=== PATIENT | male | born 1985 | race Caucasian/White ===

== ENCOUNTER 2018-03-29 15:08 | Inpatient (IN) | payer BC ==
--- NOTE | 2018-03-29 16:58 | ER Document Report ---
ED Medical Screen (RME) - General Chief Complaint: Leg Swelling Stated Complaint: FOOT PAIN Time Seen by Provider: 03/29/18 16:56 Mode of Arrival: Ambulatory Information source: Patient Notes: Patient presents complaining of right lower extremity pain for the past several days. Patient states today he developed some shortness of breath. Patient denies any chest pain. Patient denies any history of DVT or PE. Patient denies any recent immobilization, bedrest or travel. I have greeted and performed a rapid initial assessment of this patient. A comprehensive ED assessment and evaluation of the patient, analysis of test results and completion of the medical decision making process will be conducted by additional ED providers. TRAVEL OUTSIDE OF THE [place] IN LAST 30 DAYS: No - Related Data Allergies/Adverse Reactions: No Known Allergies Allergy (Unverified 06/09/16 07:31) Past Medical History - Social History Chew tobacco use (# tins/day): No Frequency of alcohol use: Rare Drug Abuse: None Renal/ Medical History: Denies: Hx Peritoneal Dialysis - Immunizations Hx Diphtheria, Pertussis, Tetanus Vaccination: No Physical Exam - Vital signs Vitals: Temp Pulse Resp BP Pulse Ox 98.6 F 97 19 128/76 H 100 03/29/18 15:21 03/29/18 15:21 03/29/18 15:21 03/29/18 15:21 03/29/18 15:21 - Extremities General lower extremity: Tender, Edema Course - Vital Signs Vital signs: Temp Pulse Resp BP Pulse Ox 98.6 F 97 19 128/76 H 100 03/29/18 15:21 03/29/18 15:21 03/29/18 15:21 03/29/18 15:21 03/29/18 15:21
--- NOTE | 2018-03-29 17:59 | RADIOLOGY REPORT (SQ) ---
EXAM DESCRIPTION: VENOUS UNILATERAL LOWER COMPLETED DATE/TIME: 03/29/2018 5:50 pm REASON FOR STUDY: RLE swelling COMPARISON: None. TECHNIQUE: Dynamic and static villela scale and color images acquired of the right leg venous system. S elected spectral images acquired with additional compression and augmentation maneuvers. The contrala teral common femoral vein and saphenofemoral junction were also imaged. Images stored on PACS. LIMITATIONS: None. FINDINGS: COMMON FEMORAL: Normal phasicity, compression and augmentation. No visualized echogenic ma terial on villela scale. No defects on color images. FEMORAL: Intraluminal thrombus is identified in the distal femoral vein. POPLITEAL: Intraluminal thrombus is identified in the popliteal vein CALF VESSELS: Intraluminal thrombus is identified in 1 of the 2 peroneal veins. GSV and SSV: Normal compression, augmentation. No visualized echogenic material on villela scale. No def ects on color images. ANY DEEP VENOUS INSUFFICIENCY: Not evaluated. ANY EVIDENCE OF POPLITEAL CYST: No. OTHER: No other significant finding. CONTRALATERAL COMMON FEMORAL VEIN AND SAPHENOFEMORAL JUNCTION: Normal phasicity, compression and augmentation. No visualized echogenic material on villela scale. No de fects on color images. IMPRESSION: Findings consistent with deep venous thrombosis involving the right lower extremity as n oted above. TECHNICAL DOCUMENTATION: JOB ID: [id number] [employer]- All Rights Reserved Reading location - IP/workstation name: [email or web address]
--- NOTE | 2018-03-29 18:20 | RADIOLOGY REPORT (SQ) ---
EXAM DESCRIPTION: CHEST 2 VIEWS COMPLETED DATE/TIME: 03/29/2018 5:42 pm REASON FOR STUDY: sob COMPARISON: None. NUMBER OF VIEWS: Two view. TECHNIQUE: Frontal and lateral radiographic views of the chest acquired. LIMITATIONS: None. FINDINGS: LUNGS AND PLEURA: Peribronchial cuffing and interstitial changes. No consolidation, effus ion, or pneumothorax. MEDIASTINUM AND HILAR STRUCTURES: No masses. No contour abnormalities. HEART AND VASCULAR STRUCTURES: Heart normal in size and contour. No evidence for failure. BONES: No acute findings. HARDWARE: None in the chest. OTHER: No other significant finding. IMPRESSION: REACTIVE AIRWAY DISEASE VERSUS VIRAL SYNDROME. NO CONSOLIDATION. TECHNICAL DOCUMENTATION: JOB ID: [id number] [place]-[id number] 2010 [employer]- All Rights Reserved Reading location - IP/workstation name: [employer]
[2018-03-29 19:11] LABS: ABSOLUTE BASOPHILS # (AUTO) 0.1 10^3/uL (0.0-0.2); ABSOLUTE EOSINOPHILS # (AUTO) 0.4 10^3/uL (0.0-0.6); ABSOLUTE LYMPHOCYTES (AUTO) 3.3 10^3/uL (0.5-4.7); ABSOLUTE MONOCYTES (AUTO) 0.8 10^3/uL (0.1-1.4); ABSOLUTE NEUT (AUTO) 5.1 10^3/uL (1.7-8.2); BASOPHILS % (AUTO) 0.5 % (0-2); EOSINOPHILS % (AUTO) 3.8 % (0-6); HEMATOCRIT 41.6 % (37.9-51.0); HEMOGLOBIN 14.3 g/dL (13.5-17.0); LYMPHOCYTES % (AUTO) 34.1 % (13-45); MEAN CORPUSCULAR HEMOGLOBIN 29.8 pg (27.0-33.4); MEAN CORPUSCULAR HGB CONC 34.4 g/dL (32.0-36.0); MEAN CORPUSCULAR VOLUME 87 fl (80-97); MONOCYTES % (AUTO) 8.6 % (3-13); PLATELET COUNT 230 10^3/uL (150-450); RED BLOOD COUNT 4.81 10^6/uL (4.35-5.55); RED CELL DISTRIBUTION WIDTH 13.6 % (11.5-14.0); TOTAL CELLS COUNTED % (AUTO) 100 %; WHITE BLOOD COUNT 9.7 10^3/uL (4.0-10.5)
[2018-03-29 19:25] LABS: PROTHROMBIN TIME 14.7 SEC (11.4-15.4)
[2018-03-29 19:26] LABS: PARTIAL THROMBOPLASTIN TIME 32.2 SEC (23.5-35.8)
[2018-03-29 19:33] LABS: ANION GAP 18 (5-19); BLOOD UREA NITROGEN 15 mg/dL (7-20); CALCIUM 9.8 mg/dL (8.4-10.2); CARBON DIOXIDE 24 mmol/L (22-30); CHLORIDE 104 mmol/L (98-107); GLUCOSE 115 mg/dL (75-110); POTASSIUM 4.3 mmol/L (3.6-5.0); SODIUM 146.2 mmol/L (137-145)
[2018-03-29] MEDS ORDERED: HEPARIN SODIUM,PORCINE/D5W 25,000 UNIT/250 ML RTUINJ IV PRN (21:55)
[2018-03-29] MEDS ORDERED: HEPARIN SOD (PORCINE) 1,000 UNIT/ML 10 ML VIAL IV ONE (21:55)
--- NOTE | 2018-03-29 22:03 | RADIOLOGY REPORT (SQ) ---
EXAM DESCRIPTION: CTA CHEST COMPLETED DATE/TIME: 03/29/2018 9:49 pm REASON FOR STUDY: difficulty breathing COMPARISON: None. TECHNIQUE: CT scan of the chest performed using helical scanning technique with dynamic intravenous contrast injection. Images reviewed with lung, soft tissue and bone windows. Reconstructed coronal and sagittal MPR images reviewed. Additional 3 dimensional post-processing performed to develop Maximal Intensity Projection images ([place] P). All images stored on PACS. All CT scanners at this facility use dose modulation, iterative reconstruction, and/or weight based d osing when appropriate to reduce radiation dose to as low as reasonably achievable (ALARA). [facility]: Dose Right [facility]: CareDose [facility]: Dose Right [facility]: Teradose 4D [facility]: [employer] Technologies CONTRAST TYPE AND DOSE: Contrast bolus optimized for the pulmonary arteries. Not diagnostic for the aorta. RENAL FUNCTION: GFR > 60. RADIATION DOSE: CT Rad equipment meets quality standard of care and radiation dose reduction techniq ues were employed. CTDIvol: 24.6 mGy. DLP: 841 mGy-cm. . LIMITATIONS: None. FINDINGS: LUNGS AND PLEURA: No masses, infiltrates, pneumothorax. No pleural effusions, calcificati ons. AORTA AND GREAT VESSELS: No aneurysm. Contrast bolus not optimized for the aorta. HEART: No pericardial effusion. No significant coronary artery calcifications. PULMONARY ARTERIES: Extensive emboli visualized in the main pulmonary arteries and all the segmental branches. No saddle embolus identified. HILAR AND MEDIASTINAL STRUCTURES: No identified masses or abnormal nodes. HARDWARE: None in the chest. UPPER ABDOMEN: No significant findings. Limited exam. THYROID AND OTHER SOFT TISSUES: No masses. No adenopathy. BONES: No acute or significant finding. 3D MIPS: Confirm above findings. OTHER: No other significant finding. IMPRESSION: Extensive emboli visualized in the main pulmonary arteries and all the segmental branche s. No saddle embolus identified. COMMENT: Results were called to the emergency room physician at 2156 hours. Results were confirmed and read back. Quality ID # [id number]: Final reports with documentation of one or more dose reduction techniques (e.g., Au tomated exposure control, adjustment of the mA and/or kV according to patient size, use of iterative reconstruction technique) TECHNICAL DOCUMENTATION: JOB ID: [id number] [place]-72 2010 [employer]- All Rights Reserved Reading location - IP/workstation name: [email or web address]
--- NOTE | 2018-03-29 22:07 | ER Document Report ---
ED General - General Mode of Arrival: Ambulatory Information source: Patient TRAVEL OUTSIDE OF THE [place] IN LAST 30 DAYS: No <MARCIE MEJIA - Last Filed: 03/30/18 00:33> <DANIELITO BARNES - Last Filed: 03/30/18 00:56> - General Chief Complaint: Leg Swelling Stated Complaint: FOOT PAIN Time Seen by Provider: 03/29/18 16:56 Notes: Patient is a 32-year-old male who presents to the emergency department today with complaints of right calf pain and associated shortness of breath. Patient states he had the right leg pain 3 days ago and did not think anything of it. Patient states today he developed shortness of breath. Patient denies any recent travel, history of malignancy, mobilization, or any other injuries (MARCIE MEJIA) - Related Data Allergies/Adverse Reactions: No Known Allergies Allergy (Unverified 06/09/16 07:31) Past Medical History - General Information source: Patient - Social History Smoking Status: Former Smoker Chew tobacco use (# tins/day): No Frequency of alcohol use: Rare Drug Abuse: None Lives with: Family Family History: Reviewed & Not Pertinent Patient has suicidal ideation: No Patient has homicidal ideation: No - Medical History Medical History: Negative Renal/ Medical History: Denies: Hx Peritoneal Dialysis Surgical Hx: Negative - Immunizations Hx Diphtheria, Pertussis, Tetanus Vaccination: No <MARCIE MEJIA - Last Filed: 03/30/18 00:33> Review of Systems - Review of Systems Constitutional: No symptoms reported EENT: No symptoms reported Cardiovascular: No symptoms reported Respiratory: See HPI, Short of breath Gastrointestinal: No symptoms reported Genitourinary: No symptoms reported Male Genitourinary: No symptoms reported Musculoskeletal: See HPI, Other - right leg pain Skin: No symptoms reported Hematologic/Lymphatic: No symptoms reported Neurological/Psychological: No symptoms reported -: Yes All other systems reviewed and negative <MARCIE MEJIA - Last Filed: 03/30/18 00:33> Physical Exam - Vital signs Interpretation: Normal - General General appearance: Appears well, Alert - HEENT Head: Normocephalic, Atraumatic Eyes: Normal Pupils: PERRL - Respiratory Respiratory status: No respiratory distress Chest status: Nontender Breath sounds: Normal Chest palpation: Normal - Cardiovascular Rhythm: Regular Heart sounds: Normal auscultation Murmur: No - Abdominal Inspection: Normal Distension: No distension Bowel sounds: Normal Tenderness: Nontender Organomegaly: No organomegaly - Back Back: Normal, Nontender - Extremities General upper extremity: Normal inspection, Nontender, Normal color, Normal ROM , Normal temperature General lower extremity: Normal inspection, Tender, Normal color, Normal ROM, Normal temperature, Normal weight bearing, Maria Victoria's sign Shoulder: Normal Arm: Normal Elbow: Normal Forearm: Normal Wrist: Normal Hand: Normal Hip: Normal Thigh: Normal Knee: Normal Calf: Tender, Other - Swelling. No cyanosis or erythema. - Neurological Neuro grossly intact: Yes Cognition: Normal Orientation: AAOx4 [place] Coma Scale Eye Opening: Spontaneous [place] Coma Scale Verbal: Oriented [place] Coma Scale Motor: Obeys Commands [place] Coma Scale Total: 15 Speech: Normal Motor strength normal: LUE, RUE, LLE, RLE Sensory: Normal - Psychological Associated symptoms: Normal affect, Normal mood - Skin Skin Temperature: Warm Skin Moisture: Dry Skin Color: Normal <DANIELITO BARNES - Last Filed: 03/30/18 00:56> - Vital signs Vitals: Temp Pulse Resp BP Pulse Ox 98.6 F 97 19 128/76 H 100 03/29/18 15:21 03/29/18 15:21 03/29/18 15:21 03/29/18 15:21 03/29/18 15:21 Course - Laboratory Result Diagrams: 03/29/18 19:00 03/29/18 19:00 <MARCIE MEJIA - Last Filed: 03/30/18 00:33> - Laboratory Result Diagrams: 03/29/18 19:00 03/29/18 19:00 - Consults Kristine Time consulted: 22:30 Consulted provider: will see as inpatient <DANIELITO BARNES - Last Filed: 03/30/18 00:56> - Re-evaluation Re-evalutation: Patient is a 32-year-old male who comes in with right calf swelling and also some difficulty breathing with exertion. Patient has an extensive DVT in his right lower extremity and also bilateral pulmonary embolus. No evidence for saddle embolus. Vitals are stable and patient is 100% on room air. No evidence for right heart strain on CT. He has no recent travel, no smoking history, no history of malignancy, no surgery or prolonged immobilization. No recent injuries. Patient was discussed with and workup for clotting has been sent. Patient was discussed with the hospitalist service. He was started on a heparin drip and will be admitted to the [facility]. Patient is agreeable to this plan. Stable at the time of admission. (DANIELITO BARNES) - Vital Signs Vital signs: Temp Pulse Resp BP Pulse Ox 98.6 F 97 18 129/75 H 98 03/29/18 15:21 03/29/18 15:21 03/30/18 00:31 03/30/18 00:31 03/30/18 00:31 - Laboratory Laboratory results interpreted by me: 03/29/18 19:00 Sodium 146.2 H Glucose 115 H Critical Care Note - Critical Care Note Total time excluding time spent on procedures (mins): 35 - Evaluation, management, and treatment of DVT with bilateral pulmonary embolus. Consultation with specialist, coordination of admission, counseling of patient and family, multiple re-evaluations <DANIELITO BARNES - Last Filed: 03/30/18 00:56> Discharge <MARCIE MEJIA - Last Filed: 03/30/18 00:33> - Discharge Admitting Provider: Hospitalist - [facility] Admitted: [facility] <DANIELITO BARNES - Last Filed: 03/30/18 00:56> - Discharge Clinical Impression: Pulmonary embolus Qualifiers: Pulmonary embolism type: other Chronicity: acute Acute cor pulmonale presence: without acute cor pulmonale Qualified Code(s): I26.99 - Other pulmonary embolism without acute cor pulmonale DVT (deep venous thrombosis) Qualifiers: DVT location: lower extremity Affected thrombotic vein of extremity: other lower extremity vein Chronicity: acute Laterality: right Qualified Code(s): I82.491 - Acute embolism and thrombosis of other specified deep vein of right lower extremity Condition: Stable Disposition: ADMITTED INPATIENT Scribe Attestation: 03/30/18 00:55 I personally performed the services described in the documentation, reviewed and edited the documentation which was dictated to the scribe in my presence, and it accurately records my words and actions. (DANIELITO BARNES) Scribe Documentation - Scribe Written by Scribe:: Natividad Angel, 03/30/2018 0038 acting as scribe for :: Rm <MARCIE MEJIA - Last Filed: 03/30/18 00:33>
[2018-03-29] MEDS ORDERED: ONDANSETRON HCL INJ/PF 4 MG/2 ML SDV IV PRN (22:34)
[2018-03-29] MEDS ORDERED: OXYCODONE-ACETAMINOPHEN 5-325 MG TABLET PO PRN (22:34)
--- NOTE | 2018-03-29 22:50 | PDOC H&P ---
History of Present Illness History of Present Illness: LEENA PEREZ is a 32 year old male patient who does not have significant medical problems presented with chief complaints of right calf pain of 2 days duration and today he develops shortness of breath on mild exertion. Initially he visited his primary care physician office who directed him to come to ER. Patient denies chest pain, fever, cough, nausea, vomiting or diarrhea. Patient endorses palpitation but no diaphoresis. With impression of PE CTA of the chest performed and reported as extensive emboli visualized within the main pulmonary arteries and also segmental branches. Patient does not have prior history of DVT or PE. No family history of clotting disorder. Past Medical History Medical History: None Past Surgical History Past Surgical History: Reports: None Social History Smoking Status: Former Smoker Frequency of Alcohol Use: None Hx Recreational Drug Use: No Drugs: None - Advance Directive Resuscitation Status: Full Code Family History Family History: None, Reviewed & Not Pertinent Parental Family History Reviewed: Yes Children Family History Reviewed: Yes Sibling(s) Family History Reviewed.: Yes Medication/Allergy Home Medications: Ondansetron [Zofran Odt 4 mg Tablet] 4 mg PO Q4HP PRN #30 tab.rapdis 06/09/16 Promethazine HCl [Phenergan 25 mg Tablet] 25 - 50 mg PO ASDIR PRN #20 tablet 11/24 Tramadol HCl [Ultram 50 mg Tablet] 50 mg PO ASDIR PRN #20 tablet 06/09/16 Allergies/Adverse Reactions: No Known Allergies Allergy (Unverified 06/09/16 07:31) Review of Systems Constitutional: ABSENT: chills, fever(s), headache(s), weight gain, weight loss Eyes: ABSENT: visual disturbances Cardiovascular: ABSENT: chest pain, dyspnea on exertion, edema, orthropnea, palpitations Respiratory: PRESENT: dyspnea Gastrointestinal: ABSENT: abdominal pain, constipation, diarrhea, hematemesis, hematochezia, nausea, vomiting Neurological: ABSENT: abnormal gait, abnormal speech, confusion, dizziness, focal weakness, syncope Psychiatric: ABSENT: anxiety, depression, homidical ideation, suicidal ideation Physical Exam Vital Signs: Temp Pulse Resp BP Pulse Ox 98.6 F 97 19 128/76 H 100 03/29/18 15:21 03/29/18 15:21 03/29/18 15:21 03/29/18 15:21 03/29/18 15:21 Intake & Output 03/28/18 03/29/18 03/30/18 06:59 06:59 06:59 Weight 98.3 kg General appearance: PRESENT: mild distress Head exam: PRESENT: atraumatic, normocephalic Eye exam: PRESENT: conjunctiva pink, EOMI, PERRLA. ABSENT: scleral icterus Respiratory exam: PRESENT: decreased breath sounds Cardiovascular exam: PRESENT: RRR. ABSENT: diastolic murmur, rubs, systolic murmur GI/Abdominal exam: PRESENT: normal bowel sounds, soft. ABSENT: distended, guarding, mass, organolmegaly, rebound, tenderness Neurological exam: PRESENT: alert, awake, oriented to person, oriented to place , oriented to time, oriented to situation, CN II-XII grossly intact. ABSENT: motor sensory deficit Psychiatric exam: PRESENT: appropriate affect, normal mood. ABSENT: homicidal ideation, suicidal ideation Results Laboratory Results: 03/29/18 19:00 03/29/18 19:00 03/29/18 03/29/18 19:00 19:00 WBC 9.7 RBC 4.81 Hgb 14.3 Hct 41.6 MCV 87 MCH 29.8 MCHC 34.4 RDW 13.6 Plt Count 230 Seg Neutrophils % 53.0 Lymphocytes % 34.1 Monocytes % 8.6 Eosinophils % 3.8 Basophils % 0.5 Absolute Neutrophils 5.1 Absolute Lymphocytes 3.3 Absolute Monocytes 0.8 Absolute Eosinophils 0.4 Absolute Basophils 0.1 Sodium 146.2 H Potassium 4.3 Chloride 104 Carbon Dioxide 24 Anion Gap 18 BUN 15 Creatinine 0.78 Est GFR ( Amer) > 60 Est GFR (Non-Af Amer) > 60 Glucose 115 H Calcium 9.8 Impressions: Chest/Abdomen CTA 03/29/18 00:00 IMPRESSION: Extensive emboli visualized in the main pulmonary arteries and all the segmental branches. No saddle embolus identified. Chest X-Ray 03/29/18 16:56 IMPRESSION: REACTIVE AIRWAY DISEASE VERSUS VIRAL SYNDROME. NO CONSOLIDATION. Venous Doppler Study 03/29/18 16:57 IMPRESSION: Findings consistent with deep venous thrombosis involving the right lower extremity as noted above. Assessment & Plan - Diagnosis (1) Bilateral pulmonary embolism Is this a current diagnosis for this admission?: Yes Plan: Patient has been given heparin bolus now he is on heparin drip. After 48-72 hours later we will switch him to p.o. anticoagulant. (2) DVT (deep venous thrombosis) Qualifiers: DVT location: lower extremity Laterality: right Is this a current diagnosis for this admission?: Yes Plan: As a #1 - Time Time Spent: 30 to 50 Minutes - Inpatient Certification Medical Necessity: Need Close Monitoring Due to Risk of Patient Decompensation, Need For Continuous Telemetry Monitoring
[2018-03-29 22:54] LABS: INTERNATIONAL RATION (INR) 1.16; PROTHROMBIN TIME 15.4 SEC (11.4-15.4)
[2018-03-29 22:55] LABS: PARTIAL THROMBOPLASTIN TIME 32.9 SEC (23.5-35.8)
[2018-03-30 04:43] LABS: ABSOLUTE BASOPHILS # (AUTO) 0.1 10^3/uL (0.0-0.2); ABSOLUTE EOSINOPHILS # (AUTO) 0.4 10^3/uL (0.0-0.6); ABSOLUTE LYMPHOCYTES (AUTO) 3.7 10^3/uL (0.5-4.7); ABSOLUTE MONOCYTES (AUTO) 0.9 10^3/uL (0.1-1.4); ABSOLUTE NEUT (AUTO) 4.9 10^3/uL (1.7-8.2); EOSINOPHILS % (AUTO) 4.3 % (0-6); HEMATOCRIT 37.6 % (37.9-51.0); HEMOGLOBIN 13.3 g/dL (13.5-17.0); LYMPHOCYTES % (AUTO) 36.8 % (13-45); MEAN CORPUSCULAR HEMOGLOBIN 30.5 pg (27.0-33.4); MEAN CORPUSCULAR HGB CONC 35.4 g/dL (32.0-36.0); MEAN CORPUSCULAR VOLUME 86 fl (80-97); MONOCYTES % (AUTO) 8.7 % (3-13); PLATELET COUNT 194 10^3/uL (150-450); RED BLOOD COUNT 4.36 10^6/uL (4.35-5.55); RED CELL DISTRIBUTION WIDTH 13.3 % (11.5-14.0); SEGMENTED NEUTROPHILS % (AUTO) 49.2 % (42-78); TOTAL CELLS COUNTED % (AUTO) 100 %
[2018-03-30] MEDS ORDERED: HEPARIN SOD (PORCINE) 1,000 UNIT/ML 10 ML VIAL ONE (04:59)
[2018-03-30 05:12] LABS: ANION GAP 13 (5-19); BLOOD UREA NITROGEN 14 mg/dL (7-20); CALCIUM 9.1 mg/dL (8.4-10.2); CARBON DIOXIDE 26 mmol/L (22-30); CHLORIDE 105 mmol/L (98-107); GLUCOSE 126 mg/dL (75-110); POTASSIUM 3.8 mmol/L (3.6-5.0); SODIUM 144.1 mmol/L (137-145)
[2018-03-30] MEDS ORDERED: LANSOPRAZOLE 30 MG TAB.RAP.DR PO SCH (06:00)
--- NOTE | 2018-03-30 07:34 | EKG REPORT ---
SEVERITY:- ABNORMAL ECG - SINUS RHYTHM NONSPECIFIC INTRAVENTRICULAR CONDUCTION DELAY PROBABLE LEFT VENTRICULAR HYPERTROPHY : Confirmed by: Tyler Pittman MD 30-Mar-2018 07:33:52
--- NOTE | 2018-03-30 08:14 | PDOC CONSULTATION ---
Consultation Consult Date: 03/30/18 Consult reason:: Hematology consult was requested for DVT/PE. History of Present Illness Admission Date/PCP: 03/29/18 22:48 History of Present Illness: LEENA PEREZ is a 32 year old male with no prior significant medical history. He states that 4 days ago, he developed sudden pain in his right leg. It did not initially concern him as it felt like a Ji Horse. However, by yesterday morning at 3 am, he was unable to put weight on this leg due to pain and he also developed shortness of breath. He presented to his PCP and was sent to the ED where he was found to have an extensive DVT in the right leg as well as PE. He denies ever having been diagnosed with DVT in the past. He has no family history of blood clots. 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 He was started on a Heparin drip and states that the pain in his leg is now much improved. He is not requiring oxygen. Past Medical History Cardiac Medical History: Reports: None Pulmonary Medical History: Reports: Pneumonia Neurological Medical History: Reports: None Endocrine Medical History: Reports: None Renal/ Medical History: Reports: None Malignancy Medical History: Reports: None GI Medical History: Reports: None Musculoskeltal Medical History: Reports: None Psychiatric Medical History: Reports: None Traumatic Medical History: Reports: None Hematology: Reports: None Infectious Medical History: Reports: None Past Surgical History Past Surgical History: Reports: None Social History Information Source: Patient Lives with: Family Smoking Status: Former Smoker Cigarettes Packs Per Day: 2 Last Time Smoked: Does use oral tobacco Frequency of Alcohol Use: Rare Hx Recreational Drug Use: No Drugs: None - Advance Directive Resuscitation Status: Full Code Family History Parental Family History Reviewed: Yes - HTN. PGM with DM Children Family History Reviewed: Yes Sibling(s) Family History Reviewed.: Yes Medication/Allergy Home Medications: No Home Medications 03/30/18 Allergies/Adverse Reactions: No Known Allergies Allergy (Unverified 06/09/16 07:31) Review of Systems Constitutional: ABSENT: fever(s), headache(s) Eyes: ABSENT: visual disturbances Ears: ABSENT: hearing changes Nose, Mouth, and Throat: ABSENT: sore throat Cardiovascular: PRESENT: chest pain, dyspnea on exertion Respiratory: PRESENT: dyspnea Gastrointestinal: ABSENT: abdominal pain, constipation, nausea Genitourinary: ABSENT: dysuria Musculoskeletal: PRESENT: as per HPI Integumentary: ABSENT: rash Neurological: ABSENT: confusion, numbness Psychiatric: ABSENT: anxiety, depression Hematologic/Lymphatic: ABSENT: easy bruising, lymphadenopathy Physical Exam Vital Signs: Temp Pulse Resp BP Pulse Ox 99.2 F 95 16 131/71 H 100 03/30/18 04:31 03/30/18 04:31 03/30/18 04:31 03/30/18 04:31 03/30/18 04:31 Intake & Output 03/29/18 03/30/18 03/31/18 06:59 06:59 06:59 Intake Total 350 Output Total 1 Balance 349 Weight 99.6 kg General appearance: PRESENT: no acute distress, well-developed, well-nourished Exam: 32 year old male. Head exam: PRESENT: atraumatic Eye exam: PRESENT: PERRLA Ear exam: PRESENT: normal external ear exam Mouth exam: PRESENT: tongue midline Neck exam: ABSENT: lymphadenopathy, tenderness, thyromegaly Respiratory exam: PRESENT: clear to auscultation alecia, unlabored Cardiovascular exam: PRESENT: RRR. ABSENT: systolic murmur Pulses: PRESENT: +1 pedal pulses bilateral GI/Abdominal exam: PRESENT: normal bowel sounds, soft. ABSENT: tenderness Extremities exam: ABSENT: pedal edema Musculoskeletal exam: PRESENT: normal inspection Neurological exam: PRESENT: alert, awake, oriented to person, oriented to place , oriented to time, oriented to situation Psychiatric exam: PRESENT: appropriate affect Focused psych exam: ABSENT: pressured speech, psychomotor agitation Skin exam: PRESENT: normal color. ABSENT: pallor Results Laboratory Results: 03/30/18 04:30 03/30/18 04:30 03/30/18 03/30/18 04:30 04:30 WBC 10.0 RBC 4.36 Hgb 13.3 L Hct 37.6 L MCV 86 MCH 30.5 MCHC 35.4 RDW 13.3 Plt Count 194 Seg Neutrophils % 49.2 Lymphocytes % 36.8 Monocytes % 8.7 Eosinophils % 4.3 Basophils % 1.0 Absolute Neutrophils 4.9 Absolute Lymphocytes 3.7 Absolute Monocytes 0.9 Absolute Eosinophils 0.4 Absolute Basophils 0.1 Sodium 144.1 Potassium 3.8 Chloride 105 Carbon Dioxide 26 Anion Gap 13 BUN 14 Creatinine 0.76 Est GFR ( Amer) > 60 Est GFR (Non-Af Amer) > 60 Glucose 126 H Calcium 9.1 Impressions: Chest/Abdomen CTA 03/29/18 00:00 IMPRESSION: Extensive emboli visualized in the main pulmonary arteries and all the segmental branches. No saddle embolus identified. Chest X-Ray 03/29/18 16:56 IMPRESSION: REACTIVE AIRWAY DISEASE VERSUS VIRAL SYNDROME. NO CONSOLIDATION. Venous Doppler Study 03/29/18 16:57 IMPRESSION: Findings consistent with deep venous thrombosis involving the right lower extremity as noted above. Status: Image reviewed by me Assessment & Plan - Diagnosis (1) Bilateral pulmonary embolism Is this a current diagnosis for this admission?: Yes Plan: No known instigating cause. He is now on a heparin drip. He is hemodynamically stable and not hypoxic. I would go ahead and change to an oral agent now. I would start Xarelto 15 mg PO BID x 21 days, then 20 mg daily. Heparin can be stopped 1 hour after the first dose is given. Factor V Leiden, Prothrombin gene mutation and Lupus/anticardiolipin antibodies are pending. I have cancelled the Protein C and Protein S levels as these are not accurate during an acute DVT. I will follow-up in in the office to review these results and discuss other testing in the future. He should remain on Xarelto for at least 6 months. I will follow him as outpatient. - Time Anticipated discharge: Home Within: within 24 hours - Plan Summary Plan Summary: Thank you for this consulatation. Please contact me if needed. I did speak with Dr. Bartholomew about his care. I will start Xarelto now.
[2018-03-30] MEDS ORDERED: RIVAROXABAN 15 MG TABLET PO ONE (09:45)
--- NOTE | 2018-03-30 10:15 | PDOC DISCHARGE SUMMARY ---
General - Admit/Disc Date/PCP Admission Date/Primary Care Provider: 03/29/18 22:48 Discharge Date: 03/30/18 - Discharge Diagnosis (1) Bilateral pulmonary embolism Is this a current diagnosis for this admission?: Yes (2) DVT (deep venous thrombosis) Is this a current diagnosis for this admission?: Yes - Additional Information Resuscitation Status: Full Code Discharge Diet: Regular Discharge Activity: Activity As Tolerated Prescriptions: Rivaroxaban [Xarelto] 20 mg PO DAILY 30 Days #30 tablet Rivaroxaban [Xarelto 15 mg Tablet] 15 mg PO BIDBS #41 tablet Home Medications: Rivaroxaban [Xarelto 15 mg Tablet] 15 mg PO BIDBS #41 tablet 03/30/18 Rivaroxaban [Xarelto] 20 mg PO DAILY 30 Days #30 tablet 03/30/18 History of Present Illness Patient complains of: Neck swelling and difficulty breathing History of Present Illness: Patient was admitted overnight with an extensive DVT in the right leg PE as well as which were unprovoked. There was no precipitating factors. He was seen by the regional economist this morning and with improvement in his symptoms and with him being started on Xarelto he was felt that patient can be discharged home. His workup including prothrombin gene mutation and anti-thrombin as well as factor 5 and anticardiolipin antibodies are currently pending and will be followed as outpatient. He has been discharged home in stable condition Physical Exam Vital Signs: Temp Pulse Resp BP Pulse Ox 98.8 F 80 18 121/71 98 03/30/18 07:30 03/30/18 07:30 03/30/18 07:30 03/30/18 07:30 03/30/18 07:30 Intake & Output 03/29/18 03/30/18 03/31/18 06:59 06:59 06:59 Intake Total 350 Output Total 1 Balance 349 Weight 99.6 kg General appearance: PRESENT: no acute distress, well-developed, well-nourished Head exam: PRESENT: atraumatic, normocephalic Eye exam: PRESENT: conjunctiva pink, EOMI, PERRLA. ABSENT: scleral icterus Ear exam: PRESENT: normal external ear exam Mouth exam: PRESENT: moist, tongue midline Neck exam: ABSENT: carotid bruit, JVD, lymphadenopathy, thyromegaly Respiratory exam: PRESENT: clear to auscultation alecia. ABSENT: rales, rhonchi, wheezes Cardiovascular exam: PRESENT: RRR. ABSENT: diastolic murmur, rubs, systolic murmur Pulses: PRESENT: normal dorsalis pedis pul Vascular exam: PRESENT: normal capillary refill GI/Abdominal exam: PRESENT: normal bowel sounds, soft. ABSENT: distended, guarding, mass, organolmegaly, rebound, tenderness Rectal exam: PRESENT: deferred Extremities exam: PRESENT: calf tenderness - Right more than left, full ROM. ABSENT: clubbing, pedal edema Neurological exam: PRESENT: alert, awake, oriented to person, oriented to place , oriented to time, oriented to situation, CN II-XII grossly intact. ABSENT: motor sensory deficit Psychiatric exam: PRESENT: appropriate affect, normal mood. ABSENT: homicidal ideation, suicidal ideation Skin exam: PRESENT: dry, intact, warm. ABSENT: cyanosis, rash Results Laboratory Results: 03/30/18 04:30 03/30/18 04:30 03/30/18 03/30/18 04:30 04:30 WBC 10.0 RBC 4.36 Hgb 13.3 L Hct 37.6 L MCV 86 MCH 30.5 MCHC 35.4 RDW 13.3 Plt Count 194 Seg Neutrophils % 49.2 Lymphocytes % 36.8 Monocytes % 8.7 Eosinophils % 4.3 Basophils % 1.0 Absolute Neutrophils 4.9 Absolute Lymphocytes 3.7 Absolute Monocytes 0.9 Absolute Eosinophils 0.4 Absolute Basophils 0.1 Sodium 144.1 Potassium 3.8 Chloride 105 Carbon Dioxide 26 Anion Gap 13 BUN 14 Creatinine 0.76 Est GFR ( Amer) > 60 Est GFR (Non-Af Amer) > 60 Glucose 126 H Calcium 9.1 Impressions: Chest/Abdomen CTA 03/29/18 00:00 IMPRESSION: Extensive emboli visualized in the main pulmonary arteries and all the segmental branches. No saddle embolus identified. Chest X-Ray 03/29/18 16:56 IMPRESSION: REACTIVE AIRWAY DISEASE VERSUS VIRAL SYNDROME. NO CONSOLIDATION. Venous Doppler Study 03/29/18 16:57 IMPRESSION: Findings consistent with deep venous thrombosis involving the right lower extremity as noted above. Qualifiers - * PATIENT BEING DISCHARGED WITH ANY OF THE FOLLOWING DIAGNOSIS: VTE (PE or DVT) VTE patient discharged on overlapping Therapy?: Yes Plan Time Spent: Less than 30 Minutes
[2018-03-30 11:09] LABS: INTERNATIONAL RATION (INR) 1.07; PROTHROMBIN TIME 14.4 SEC (11.4-15.4)
[2018-03-30 14:20] VITALS: BP 128/82
[2018-03-30] MEDS ORDERED: RIVAROXABAN 15 MG TABLET PO SCH (17:00)
[2018-04-01 06:39] LABS: DILUTE RUSSELL VIPOR VENOM 49.6 sec (0.0-47.0); DRVVT MIX 40.6 sec (0.0-47.0); PTT-LA 40.8 sec (0.0-51.9); THROMBIN TIME 20.6 sec (0.0-23.0)
[2018-04-01 08:29] LABS: ANTICARDIOLIPIN IGA AB <9 APL U/mL (0-11); ANTICARDIOLIPIN IGG AB <9 GPL U/mL (0-14); ANTICARDIOLIPIN IGM AB 9 MPL U/mL (0-12)
[2018-04-01 08:31] LABS: LUPUS PANEL INTERPRETATION Comment: (.)
== END 2018-03-30 15:21 | disposition home or self-care (01) | DRG 176 ==
LOC: ER 15:08 → EH 22:48 → 3N 03-30 01:06
PROVIDERS: ADMIT Internal Medicine; ATTEND Internal Medicine
DX: I26.99 Other pulmonary embolism without acute cor pulmonale (principal); I82.411 Acute embolism and thrombosis of right femoral vein; I82.431 Acute embolism and thrombosis of right popliteal vein; I82.491 Acute embolism and thrombosis of other specified deep vein of right lower extremity; Z87.891 Personal history of nicotine dependence; Z82.49 Family history of ischemic heart disease and other diseases of the circulatory system; Z83.3 Family history of diabetes mellitus
CPT/HCPCS: 36415; 71046; 71275; 80048; 81240; 81241; 83520; 84484; 85025; 85302; 85305; 85306; 85610; 85730; 86147; 86215; 86225; 86235; 93005; 93010; 93971; 96374; 99291; J1644